=== PATIENT | female | born 1995 | race African-American/Black ===

== ENCOUNTER → 2020-02-24 | Outpatient (CLI) | payer OTHER, MEDICARE ==
[~2020-02-24] MED LIST: BUMETANIDE1 MG PO; CALCITRIOL0.5 MCG PO; CALCIUM ACETAT667 M1 PO; CELEXA10 MG PO; CELLCEPT500 MG PO; COREG12.5 MG PO; GABAPENTIN100 MG PO; LIPITOR10 MG PO; MAGIC MOUTHWASH PO; PREDNISONE10 MG PO; TUMS ULTRA400 MG PO
== END ==
LOC: DX 15:40 → EDSTATUS 02-29 12:00
PROVIDERS: ATTEND Surgery
DX: Z01.812 Encounter for preprocedural laboratory examination (principal); Z01.818 Encounter for other preprocedural examination; N18.6 End stage renal disease; Z20.822 Contact with and (suspected) exposure to COVID-19
CPT/HCPCS: 93005; U0002